=== PATIENT | male | born 1990 | race Caucasian/White ===

== ENCOUNTER 2024-05-06 13:01 | Emergency (ER) | payer OTHER, SELFPAY ==
[2024-05-06 13:35] VITALS: BP 148/75; PULSE 75; RESP 22; TEMP 37.1; O2SAT 99
--- NOTE | 2024-05-06 14:16 | ED.EAR ---
HPI - Ear Problem General Chief complaint: Ear Stated complaint: double ear infection Source: patient Mode of arrival: ambulatory Limitations: no limitations History of Present Illness HPI Narrative: 34-year-old male presented for complaint of bilateral ear pain for 3 days. Endorses associated tinnitus and tenderness to the outside of the ear. He states he wears ear plugs for work. He denies recent nasal congestion, cough, nausea vomiting, fevers or chills. Taking Tylenol occasionally. MD Complaint: ear pain Related Data Allergies Allergy/AdvReac Type Severity Reaction Status Date / Time No Known Allergies Allergy Unverified 05/06/24 14:03 Review of Systems Review of Systems: CONSTITUTIONAL: Denies malaise, chills, or fever. EYES: Denies visual changes, redness, or discharge. ENT: Denies rhinorrhea, congestion, sinus pain, and sore throat. Reports ear pain CARDIOVASCULAR: Denies chest pain, palpitations, or edema. RESPIRATORY: Denies cough or dyspnea. GASTROINTESTINAL: Denies abdominal pain, nausea, vomiting, diarrhea SKIN: Denies rash or itching. MUSCULOSKELETAL: Denies myalgia. NEUROLOGIC: Denies headache. All systems reviewed & are unremarkable except as noted in HPI and below PMFSH Comments At time of signature, agree with nursing past medical, surgical, social and family history. There is no relevant family history pertinent to the presenting complaint Exam Narrative: GENERAL: Well-appearing EYES: PERRLA, conjunctivae clear ENT: Nares clear. Mucous membranes moist. right TM erythematous, bulging and intact; canal also erythematous, tender, no drainage. left TM pearly choe with dull light reflex, canal also erythematous, tender, no drainage; no tragal tenderness. Oropharynx not erythematous without lesions. Tonsils not enlarged and without exudate, no drooling, no hoarseness, no trismus, uvula midline. NECK: Supple. No lymphadenopathy CHEST: Clear to auscultation, breath sounds equal. No wheezing, rhonchi, rales, or stridor. No respiratory distress, speaks in full sentences. HEART: Regular rate and rhythm. No murmur heard. SKIN: Warm, dry, no rash. NEURO: Alert and oriented x3. PSYCH: Normal mood and affect Course Course Emergency Course: Patient is aware of diagnosis, understands and agrees to treatment plan. Anticipatory guidance given. Patient agrees to follow-up as directed and is aware of reasons to seek care at the emergency department. Portions of this record may have been created with voice recognition software Level of Care: Express Care Visit Vital Signs Vital signs: Vital Signs Temperature 98.7 F 05/06/24 13:35 Pulse Rate 75 05/06/24 13:35 Respiratory Rate 22 H 05/06/24 13:35 Blood Pressure 148/75 H 05/06/24 13:35 Pulse Oximetry 99 05/06/24 13:35 Oxygen Delivery Room Air 05/06/24 13:35 Temperature 98.7 F 05/06/24 13:35 Pulse Rate 75 05/06/24 13:35 Respiratory Rate 22 H 05/06/24 13:35 Blood Pressure 148/75 H 05/06/24 13:35 Pulse Oximetry 99 05/06/24 13:35 Oxygen Delivery Room Air 05/06/24 13:40 Reviewed Medical Decision Making MDM Narrative Medical decision making narrative: Discussed physical exam findings consistent with bilateral otitis externa, will treat for otitis medias the right TM is erythematous.. Advised supportive measures and signs/symptoms to go to the ER. Patient is appropriate for outpatient treatment and follow-up. Differential Diagnosis Differential Diagnosis: Coronavirus, strep pharyngitis, allergic rhinitis, upper respiratory tract infection, sinusitis, rhinosinusitis, nasopharyngitis, viral pharyngitis, otitis media, otitis externa, eustachian tube dysfunction, foreign body, cerumen impaction. Vital Signs Vital Signs: Vital Signs Temperature 98.7 F 05/06/24 13:35 Pulse Rate 75 05/06/24 13:35 Respiratory Rate 22 H 05/06/24 13:35 Blood Pressure 148/75 H 05/06/24 13:35 Pulse Oximetry 99 05/06/24 13:35 Oxygen Delivery Room Air 05/06/24 13:35 Temperature 98.7 F 05/06/24 13:35 Pulse Rate 75 05/06/24 13:35 Respiratory Rate 22 H 05/06/24 13:35 Blood Pressure 148/75 H 05/06/24 13:35 Pulse Oximetry 99 05/06/24 13:35 Oxygen Delivery Room Air 05/06/24 13:40 Discharge Plan Discharge Clinical Impression: Otitis externa Qualifiers: Otitis externa type: unspecified type Chronicity: acute Laterality: bilateral Qualified Code(s): H60.503 - Unspecified acute noninfective otitis externa, bilateral Otitis media Qualifiers: Otitis media type: suppurative Chronicity: acute Laterality: right Recurrence: non-recurrent Spontaneous tympanic membrane rupture: without spontaneous rupture Qualified Code(s): H66.001 - Acute suppurative otitis media without spontaneous rupture of ear drum, right ear Patient Disposition: Home, Self-Care Condition: Stable Instructions: Antibiotic Form, Swimmer's Ear (ED) Additional Instructions: Swimmer's ear is an infection in the outer ear canal, which runs from your eardrum to the outside of your head. It's often caused by water that remains in your ear, creating a moist environment that encourages the growth of bacteria. Take antibiotic drops as directed. Tylenol and ibuprofen every 8 hours as needed to reduce fever, pain Avoid water or anything into the ear for one week Follow up with your personal physician If your symptoms persist, change or worsen significantly, go to the emergency department for further evaluation. Patient Language: Yoruba Prescriptions: New amoxicillin-pot clavulanate 875-125 mg tablet 1 tablet PO Q12H 7 Days Qty: 14 0RF ciprofloxacin-dexamethasone 0.3-0.1 % drops,suspension 4 drp EACH EAR Q12H 7 Days Qty: 7.5 0RF Follow-up/Referrals: PHYSICIAN,ACCOUNTING COORDINATOR [Primary Care Provider] - Stand Alone Forms: Work/School Release IP Time of Disposition: 14:22
== END 2024-05-06 14:24 | disposition home or self-care (01) ==
PROVIDERS: Emergency Provider Nurse Practitioner Family
DX: H60.503 Unspecified acute noninfective otitis externa, bilateral (principal); H66.001 Acute suppurative otitis media without spontaneous rupture of ear drum, right ear
CPT/HCPCS: 99203; G0463

== ENCOUNTER 2024-12-10 08:13 | Emergency (ER) | payer OTHER, SELFPAY ==
--- OUTSIDE RECORDS SUMMARY | 2015-09-01 04:15 | XMS_ITS | Continuity of Care Document ---
Author Organization Located within [facility] Address [address] [place] [address] [place] [address] Phone Care Team Providers Care Head Sawyer Automatic Name Role Phone Ok Finley MD Unavailable Unavailable Allergies, Adverse Reactions, Alerts Substance Reaction Status Criticality No Known Allergies Active No Inform ation Procedures Procedure Date No Charge Refraction Advance Directives Directive Yes / No Effective Date File Name No Information Encounters Encounter Description Practice Location Reason(s) For Visit Diagnoses Date Provider Providers Copied on Encounter [facility], [address] [place] [address] [address], [place], [place], [id number], tel:[phone] [address] [place] Professional routine exam (chief complaint) Routine eye exam [address] [place] [place] [id number]. tel:[phone] Referring Provider: Ok Youssef, [address] [facility], [place], [address] . tel:[phone] Family History Family Member Type Diagnosis Age At Onset No Information Payers Payer name Insurance type Covered alliance party ID Authoriza tion(s) No Information Social History Type Description Quantity Date Captured Comments Alcohol Use Details Caffeine Use Details Tobacco Use Status No Information Smoking Status Never smoker Non-Smoking Tobacco Use Details : No Details Available : No Details Available Sex Male Chief Complaint And Reason For Visit From encounter dated '09/01/2015 09:15'. routine exam (chief complaint). Description: The 25 year old male presents for a new patient exam ou. Patient c/o harder to see at night. Patient states his eyes water. Reason For Referral Reason For Referral No Information History Of Present Illness Encounter Date Complaint History Of Prese nt Illness routine exam The 25 year old male presents for a new patient exam ou. Patient c/o harder to see at night. Patient states his eyes water. Functional Status Date Functional Assessmen t No Information Instructions Date Instruction Additional Infor saleem Impression/Plan - Di scussed diagnosis in detail with patient. Slight refractive error. Rx for glasses given to patient. Recommend OTC allergy drops for allergies. Return to clinic in 2 years for complete exam or sooner with any problems. Routine eye exam - Educational m aterial given Related to Routine eye exam Follow up - Return i n 2 years with Ok Finley M.D. for Complete Exam. Assessments Type Assessment Date assessment Routine eye exam Patient Care Teams Name Effective Dates (start - stop) Status Members No Information
[2024-12-10 08:16] VITALS: BP 151/87; PULSE 67; RESP 16; TEMP 36.1; O2SAT 98
--- OUTSIDE RECORDS SUMMARY | 2024-12-10 08:16 | XMS_ITS | Clinical Summary ---
Author Organization [facility] Address [address] [place] [id number] Care Team Providers Care Veterans' Coordinator Name Role Phone Harshal Mcmillan MD Primary Care Provider [phone] Allergies No known active allergies Medications blood-glucose meter (Freestyle InsuLinx) misc Test daily before all meals/snacks and once before bedtime. 1 each 08/07/19 25 Active alcohol swabs pads, medicated TEST DAILY BEFORE ALL MEALS/SNACKS AND ONCE BEFORE BEDTIME DIRECTED 100 each 11 08/25/19 25 Active lancets 30 gauge misc Use to test blood sugar twice daily 200 each 3 09/08/19 25 Active blood glucose diagnostic (glucose blood) strip Check blood sugar two times a day 200 each 3 09/08/19 25 Active naproxen (NAPROSYN) 500 mg tablet Take 1 tablet (500 mg total) by mouth 2 (two) times a day with meals 30 tablet 09/17/19 25 Active Additional Information Patient not taking.Reported on 11/18/2024 methocarbamoL (ROBAXIN) 500 mg tablet Take 1 tablet (500 mg total) by mouth 2 (two) times a day 20 tablet 09/17/19 25 Active Additional Information Patient not taking.Reported on 11/18/2024 lidocaine (LIDODERM) 5 % Place 1 patch on the skin daily for 12 hours for 14 days Remove & discard patch within 12 hours or as directed by . 14 patch 09/17/[address] (CYMBALTA) 30 mg capsuleIndica tions:Moderat e major depression (HCC),General ized anxiety disorder Take 1 capsule (30 mg total) by mouth daily 30 capsule 2 11/16/19 25 Active tirzepatide (Mounjaro) 5 mg/0.5 mL pen injector injection Inject 0.5 mL (5 mg total) under the skin once a week 2 mL 6 11/19/[address] (CYMBALTA) 30 mg capsuleIndica tions:Moderat e major depression (HCC),General ized anxiety disorder Take 1 capsule (30 mg total) by mouth daily 30 capsule 2 08/13/19 25 025 Discontinued(R eorder) tirzepatide (Mounjaro) 2.5 mg/0.5 mL pen injector injection Inject 0.5 mL (2.5 mg total) under the skin once a week 2 mL 6 08/19/19 25 025 Discontinued FreeStyle Gianfranco 3 Plus Sensor device 1 Device continuously [id number] each 4 08/19/19 25 025 Active Problems Problem Noted Date Diagnosed Date Type 2 diabetes mellitus wit hout complication, without long-term current use of insulin 08/12/2024 Assessment & Plan (09/06/2024 4:34 PM CDT): Stable, improving control; patient is making dietary changes, focusing on low-carbohydrate diet; per patient home blood sugars are running under 200 generally with few episodes going over 200 Encouraged continued use of food generally to identify high carbohydrate foods Continue mounjaro 2.5, increase monthly as tolerated per Endocrinology Moderate major depression 08/12/2024 Assessment & Plan (09/06/2024 4:34 PM CDT): Stable, well controlled; patient reports good relief with medication No major depressive or anxious symptoms at this time Continue duloxetine 30 mg daily Generalized anxiety disorder 08/12/2024 Right ureteral calculus 08/05/2024 Class 3 severe obesity due t o excess calories with serious comorbidity and body mass index (BMI) of 45.0 to 49.9 in adult 03/13/2018 Assessment & Plan (09/06/2024 4:34 PM CDT): Stable, improving; patient is down about 30 lb since our no show started on weight loss Encouraged continued dietary changes, limiting high-calorie foods, limiting sugary foods Patient recently started Mounjaro; to increase dosage monthly as tolerated 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 11/02/2015 Overview (06/14/2016): Prolapsed thoracic intervertebral disc without myelopathy Chronic thoracic back pain 04/21/2015 Overview (06/14/2016): Chronic thoracic back pain Sciatica 02/17/2014 Overview (06/14/2016): Sciatica 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 12/14/2013 Overview (06/14/2016): Displacement of lumbar intervertebral disc without myelopathy Back pain 11/10/2013 Overview (06/14/2016): Back pain Numbness 11/10/2013 Overview (06/14/2016): Numbness Resolved Problems Problem Noted Date Diagnosed Date Resolved Date Type 2 diabetes mellitus wit h hyperglycemia ([facility]/HCC) 08/12/2024 08/12/2024 Postprocedural state 02/17/2014 0605/ 025 Overview (06/14/2016): Postprocedural state finding Encounters Date Type Department Care Team Description 11/18/2024 1:00 PM CDT Office Visit [facility] Diabetes [facility] at [address] [place] [phone] Christopher Vasquez, Type 2 diabetes mellitus without complication, without long-term current use of insulin (HCC) (Primary Dx) 09/16/2024 6:55 PM CDT - 09/16/2024 7:56 PM CDT Emergency [facility] Emergency Department [address] [place] [address] Midline low back pain without sciatica, unspecified chronicity (Primary Dx) Discharge Disposition: Discharge to home or self care from Last 3 Months Immunizations Immunization Administration Dates Next Due DTP 10/25/1992, 2,1990,06/09 HPV, Quadrivalent 10/12/2012 Hep A, Adult 10/12/2012 Hep A, Pediatric 09/05/2005 Hep B, Adolescent or Pediatric 08/09/2002,2002,07/29/2001 IPV 10/25/1992, 2,1990,06/09 Influenza, Quadrivalent, Spl it, Preservative Free, Intramuscular 01/18/2021 MMR 06/26/1993,11/18/1991 Tdap 09/05/2005 Surgical History Surgery Date Site/Laterality Comments BACK SURGERY 03/10/2015 - 03/09/2016 microdiskectomy lumbar spine SPINAL CORD STIMULATOR IMPLANT 03/10/2015 - 03/09/2016 pt states that it is and no longer works CYSTOSCOPY W/ URETEROSCOPY W/ LITHOTRIPSY 08/06/2024 laser, Dr. Guo Medical History Medical History Date Comments Pilonidal abscess Diabetes mellitus, type 2 Family History Medical History Relation Name Comments Gout Father Hypertension Father Hypertension; covid19 complications Father prediabetes Father Blindness Maternal Grandfather Diabetes type II Maternal Grandfather Diabetes type II Mother Diabetes me llitus type 2; Nephrolithiasis Mother Aneurysm Other Gilberto Diabetes type II Other Gilberto Coronary artery disease Paternal Grandfather covid 19 Paternal Grandfather Kidney disease Paternal Grandmother covid 19 Paternal Grandmother Relation Name Status Comments Father Alive Maternal Grandfather Maternal Grandmother Mother Alive Other Gilberto Paternal Grandfather Paternal Grandmother Social History Tobacco Use Types Packs/Day Years Used Date Smoking Tobacco: Never Smokeless Tobacco: Never Tobacco Cessation:Counseling Given: Not Answered Alcohol Use Standard Drinks/Week Comments Yes 0 (1 standard drink = 0.6 oz pur e alcohol) socially AUDIT-C Answer Date Recorded Q1: How often do you have a drink containing alc ohol? Monthly or less 09/06/2024 Q2: How many drinks containi ng alcohol do you have on a typical day when you are drinking? 1 or 2 09/06/2024 Q3: How often do you have si x or more drinks on one occasion? Never 09/06/2024 PHQ-2 Answer Date Recorded PHQ-2 Total Score (If total score is 3 or more points, staff should administer the PHQ-9) 0 09/06/2024 PHQ-9 Answer Date Recorded PHQ-9 Total Score 11 08/12/2024 Personal Safety Answer Date Recorded Have you ever been in or are you currently in a harmful physical or emotional relationship or is someone making you feel afraid or unsafe? Denies 09/16/2024 Sex and Gender Information Value Date Recorded Sex Assigned at Not on file Legal Sex Male 3:23 AM [employer] Gender Identity Male 08/11/2024 8:44 AM CDT Sexual Orientation Straight 08/11/2024 8: 44 AM CDT Obstetrics History Last Filed Vital Signs Vital Sign Reading Time Taken Comments Blood Pressure 126/82 11/18/2024 12:50 PM CDT Pulse 78 11/18/2024 12:50 PM CDT Temperature 37.2 C (98.9 F) 09/16/2024 6:53 PM CDT Respiratory Rate 18 09/16/2024 6:53 PM CDT Oxygen Saturation 100% 09/16/2024 6:53 PM CDT Inhaled Oxygen Concentration - - Weight 146.9 kg (323 lb 12.8 oz) 2024 12:50 PM CDT Height 180.3 cm (5' 11) 11/18/2024 12: 50 PM CDT Body Mass Index 45.16 11/18/2024 12:50 PM CDT Plan of Treatment Health Maintenance Due Date Last Done Comments Regular Well Visit/Exam 18-64 2008 Pneumococcal vaccine <65 (1 of 2 - PCV) 2009 HPV Vaccines (2 - Male 3-dos e series) 11/09/2012 10/12/2012 DTaP/Tdap/Td Vaccine (6 - Td or Tdap) 09/06/2015 09/05/2005, 10/25/1992, 06/28/1991, Additional history exists Covid-19 Vaccine ( - 2024-2 6 season) 2024 01/24/2021, 06/15/2020 Influenza Vaccine (#1) 2024 01/18/2021 Hemoglobin A1C 05/18/2025 11/18/2024, 08/05/2024 Dilated Eye Exam 08/12/2025 08/12/2024 Foot Exam 08/12/2025 08/12/2024 eGFR 08/13/2025 08/13/2024, 08/05/2024 Albumin Creatinine Ratio, Urine 09/06/2025 Depression Screening 09/06/2025 09/06/2024, 08/12/2024, 08/12/2024 Lipid Panel 09/06/2025 09/06/2024 Hepatitis B Screening Completed 08/09/2002 , 04/21/2002, 07/29/2001 Hepatitis C Screening Completed 09/06/2024 Varicella Vaccines Discontinued Medical Devices Implanted Type Area Compounding And Finishing Supervisor Device Identifier Shelf Expiration Date Model / Serial / Lot Spinal Cord Stimulator-3/04/2014 Implanted:Qty: 1 on 05/19/2014 by Pascual Alvarado MD Spinal Cord Stimulator Left: Back [id number] / [id number] / [employer] Stent Ureteral Set Double Pigtail Tapered Tip Contour [id number] Hydroplus Coated [id number] - [id number] Implanted:Qty: 1 on 08/06/2024 by Ezio Douglas MD at [facility] Right: Ureter [employer] 01/20/2027 [id number] / / [id number] Procedures Procedure Name Priority Date/Time Associated Diagnosis Comments POCT HEMOGLOBIN A1C Routine 11/18/2024 1 2:58 PM CDT Type 2 diabetes mellitus without complication, without long-term current use of insulin (HCC) XR SPINE LUMBAR 2 OR 3 VIEWS ED 09/16/2024 7:29 PM CDT HEPATITIS C ANTIBODY Routine 09/06/2024 12:13 PM CDT Encounter for hepatitis C screening test for low risk patient LIPID PANEL Routine 09/06/2024 12:13 PM CDT Type 2 diabetes mellitus without complication, without long-term current use of insulin (HCC) Class 3 severe obesity due to excess calories with serious comorbidity and body mass index (BMI) of 45.0 to 49.9 in adult ALBUMIN CREATININE RATIO, URINE Routine 09/06/2024 12:13 PM CDT Type 2 diabetes mellitus without complication, without long-term current use of insulin (HCC) EGFR STAT 08/13/2024 2:02 PM CDT RETINAVUE SCANNER - OU - BOTH EYES Routine 08/12/2024 Type 2 diabetes mellitus without complication, without long-term current use of insulin (HCC) from Last 3 Months or Most Recently Relevant to Health Maintenance Results * (ABNORMAL) POCT hemoglobin A1c (11/18/2024 12:58 PM CDT) Hemoglobin A1C, POC 5.8(A) 4.0 - 5.6 % Blood 11/18/2024 12:5 8 PM CDT Christopher Vasquez DO POINT OF CARE TEST ORDERABL ES Final Result * XR Spine Lumbar 2 or 3 Views (09/16/2024 7:29 PM CDT) Anatomical Region Laterality Modality Spine N/A Computed Radiogr aphy 09/16/2024 7:35 PM CDT Narrative 09/16/2024 7:45 PM CDT EXAM DESCRIPTION: XR SPINE LUMBAR 2 OR 3 VIEWS REASON FOR STUDY: Back pain after lifting, previous spinal surgery to L4-L5 Pain in lower back for 4 days. No known injury Pain radiates to both hips Hx of spinal stimulator and discetomy TECHNIQUE: 4 radiographic view(s) of the lumbar spine. COMPARISON: CT abdomen pelvis 08/05/2024 FINDINGS: ALIGNMENT: There is straightening of the lumbar lordosis. VERTEBRAE: Vertebral bodies of normal height. No fractures appreciated. Small endplate osteophytes are present. There are mild facet degenerative changes at L4-5 and L5-S1. DISCS: Mild disc space narrowing at L5-S1 and T12-L1. SOFT TISSUES: Dual lead dorsal column stimulator is present. IMPRESSION: No acute osseous abnormality of the lumbar spine. Mild degenerative changes of the lumbar spine. Dual lead dorsal column stimulator. THIS IS AN ELECTRONICALLY VERIFIED FINAL REPORT 09/16/2024 7:45 PM - Electronically signed by Yemi Kelly M.D. AM: AM Report ID: [id number] Reading Location: [id number] Procedure Note Yemi Kelly MD - 09/16/2024 EXAM DESCRIPTION: XR SPINE LUMBAR 2 OR 3 VIEWS REASON FOR STUDY: Back pain after lifting, previous spinal surgery toL4-L5 Pain in lower back for 4 days. No known injury Pain radiates to both hipsHx of spinal stimulator and discetomy TECHNIQUE: 4 radiographic view(s) of the lumbar spine. COMPARISON: CT abdomen pelvis 08/05/2024 FINDINGS: ALIGNMENT: There is straightening of the lumbar lordosis. VERTEBRAE: Vertebral bodies of normal height. No fractures appreciated.Small endplate osteophytes are present. There are mild facet degenerativechanges at L4-5 and L5-S1. DISCS: Mild disc space narrowing at L5-S1 and T12-L1. SOFT TISSUES: Dual lead dorsal column stimulator is present. IMPRESSION: No acute osseous abnormality of the lumbar spine. Mild degenerative changes of the lumbar spine. Dual lead dorsal column stimulator. THIS IS AN ELECTRONICALLY VERIFIED FINAL REPORT 09/16/2024 7:45 PM - Electronically signed by Yemi Kelly M.D. AM: AM Report ID: [id number] Reading Location: [id number] Katie [facility] XR PROCEDURES Final Result * Hepatitis C antibody Blood (09/06/2024 12:13 PM CDT) Hep C Ab Nonreactive Nonreactive Comment: Interpretive Data Nonreactive: Antibodies to HCV not detected. Does NOT exclude the possibility of recent exposure to HCV. Equivocal: Equivocal for HCV antibodies. Supplemental molecular testing will be automatically performed to determine infection status in accordance with current CDC screening recommendations. Reactive: Positive for HCV antibodies. This may represent current or past HCV infection. Supplemental molecular testing will be automatically performed to determine current infection status in accordance with current CDC screening recommendations. Interpretive data was last revised on 2019. Testing performed by: [facility], [address] [place] [address]., [id number] Blood 09/06/2024 12:1 3 PM CDT 09/06/2024 5:13 PM CDT Viky Brown DIAMOND FINISHING SUPERVISOR LAB MICROBIOLOGY - GENE RAL ORDERABLES Final Result Performing Organization Address City/[facility]/ZIP Co de Phone Number NAYELY SG ([place]) [address] [facility] [place] [address] * Albumin Creatinine Ratio, Urine (09/06/2024 12:13 PM CDT) Albumin Ur 22.2 mg/L Comment: Interpretive Data No reference range established. Current interpretive data was last revised 2018. Testing performed by: [facility], [address] [place] [address]., [id number] Creatinine Ur 431.0 mg/dL NAYELY BETTENCOURT ([place]) Comment: Interpretive Data No reference range established. Current interpretive data was last revised 2018. Testing performed by: [facility], [address] [place] [address]., [id number] Albumin Creatinine Ratio, Ur 5 1 - 29 mg/g NAYELY BETTENCOURT ([place]) Comment:Testing performed by : [facility], [address] [place] [address]., [id number] Urine 09/06/2024 12:1 3 PM CDT 09/07/2024 5:34 AM CDT Viky Brown DIAMOND FINISHING SUPERVISOR LAB URINE ORDERABLES Fi nal Result Performing Organization Address City/[facility]/ZIP Co de Phone Number NAYELY BETTENCOURT ([place]) 1 [facility] Department [employer] [place] [address] * (ABNORMAL) Lipid panel (09/06/2024 12:13 PM CDT) Cholesterol 137 30 - 199 mg/dL Comment: Interpretive Data Ages < or = 19 years Acceptable: <170 mg/dL Borderline high: 170-199 mg/dL High: >or= 200 mg/dL Ages > or = 20 years Desirable: <200 mg/dL Borderline high: 200-239 mg/dL High: >or= 240 mg/dL Literature References: 1. Expert Panel on Integrated Guidelines for Cardiovascular Health and Risk Reduction in Children and Adolescents. Pediatrics 2011;128:S213 2. NCEP Expert Panel. Circulation 2004;110:227 Current Interpretive Data was last revised on 2017. Triglycerides 66 <=149 mg/dL NAYELY BETTENCOURT ([place]) Comment: Interpretive Data Ages < or = 9 years Acceptable: <75 mg/dL Borderline high: 75-99 mg/dL High: >or= 100 mg/dL Ages 10 to 20 years Acceptable: <90 mg/dL Borderline high: 90-129 mg/dL High: >or= 130 mg/dL Ages > or = 20 years Desirable: <150 mg/dL Borderline high: 150-199 mg/dL High: 200-499 mg/dL Very high: >or= 499 mg/dL Literature References: 1. Expert Panel on Integrated Guidelines for Cardiovascular Health and Risk Reduction in Children and Adolescents. Pediatrics 2011;128:S213 2. NCEP Expert Panel. Circulation 2004;110:227 Current Interpretive Data was last revised on 2017. HDL 37(L) >=40 mg/dL NAYELY NOLASCO) Comment: Interpretive Data Ages < or = 19 years Acceptable: >45 mg/dL Borderline low: 40-45 mg/dL Low: <40 mg/dL Ages > or = 20 years Desirable: >or= 60 mg/dL Low: <40 mg/dL Literature References: 1. Expert Panel on Integrated Guidelines for Cardiovascular Health and Risk Reduction in Children and Adolescents. Pediatrics 2011;128:S213 2. NCEP Expert Panel. Circulation 2004;110:227 Current Interpretive Data was last revised on 2017. LDL, calculated 86 <=129 mg/dL NAYELY BETTENCOURT ([place]) Comment: Interpretive Data Ages < or = 19 years Acceptable: <110 mg/dL Borderline high: 110-129 mg/dL High: >or= 130 mg/dL Ages > or = 20 years Optimal: <100 mg/dL Near optimal: 100-129 mg/dL Borderline high: 130-159 mg/dL High: >160 mg/dL Calculated using the Dejesus LDL-C estimating equation. This equation was implemented on 2023. Prior to this date LDL-C was estimated using the Friedewald equation. Literature References: 1. Expert Panel on Integrated Guidelines for Cardiovascular Health and Risk Reduction in Children and Adolescents. Pediatrics 2011;128:S213 2. NCEP Expert Panel. Circulation 2004;110:227 3. Oleg Thomas et al. HANS Cardiol. 2020 July 08;5(5):540-548. doi: 10.1001/jamacardio.2020.0013 Current Interpretive Data was last revised on 2023. Non-HDL Cholesterol 100 mg/dL NAYELY BETTENCOURT ([place]) Comment: Interpretive Data Ages < or = 19 years Acceptable: <120 mg/dL Borderline high: 120-144 mg/dL High: >145 mg/dL Ages > or = 20 years When triglycerides are >200 mg/dL, Non-HDL cholesterol is a secondary target of therapy with treatment goals that are 30 mg/dL greater than the LDL cholesterol target. Literature References: 1. Expert Panel on Integrated Guidelines for Cardiovascular Health and Risk Reduction in Children and Adolescents. Pediatrics 2011;128:S213 2. NCEP Expert Panel. Circulation 2004;110:227 Current Interpretive Data was last revised on 2017. Chol/HDL ratio 4 PATSY BETTENCOURT ([place]) Blood 09/06/2024 12:1 3 PM CDT 09/06/2024 12:26 PM CDT Viky Brown DIAMOND FINISHING SUPERVISOR LAB BLOOD ORDERABLES nal Result NAYELY BETTENCOURT ([place]) 1 [facility] [place] [address] * eGFR (08/13/2024 2:02 PM CDT) eGFR 87 >=60 mL/min/1. 73 m2 Comment: Interpretive Data Reference Interval Normal >/= 90 mL/min/1.73m2 Mildly decreased* 60 - 89 mL/min/1.73m2 Mildly to moderately decreased 45 - 59 mL/min/1.73m2 Moderately to severely decreased 30 - 44 mL/min/1.73m2 Severely decreased 15 - 29 mL/min/1.73m2 Kidney Failure < 15 mL/min/1.73m2 *Relative to young adult level Estimated glomerular filtration rate is determined by the 2020 CKD-EPI equation recommended by the National Kidney Foundation (A Unifying Approach to GFR Estimation: Recommendations of the NKF-ASK Task Force on Reassessing the Inclusion of Race in Diagnosing Kidney Disease, JASN 2020). The CKD-EPI equation should not be used for patients with unstable renal function and has not been validated in children and those over 70. Current interpretive data was last reviewed 2021. Blood 08/13/2024 2:02 PM CDT 08/13/2024 2:12 PM CDT Rodri Hassan MD LAB BLOOD ORDERABLES Final R esult [facility] ([place]) 1 [facility] [place] [address] * RetinaVue Scanner - OU - Both Eyes (08/12/2024) Anatomical Region Laterality Modality Head Fundus Photograp hy 08/12/2024 Viky Brown NP OPHTH PHOTOGRAPHY Final Result from Last 3 Months or Most Recently Relevant to Health Maintenance Insurance [facility] [place] [id number] Advance Directives For more information, please contact: [phone] * Full Code (Latest Code Status on File) Date Activated Date Inactivated Comments 08/05/2024 8:23 PM 08/07/2024 5:31 PM Care Teams Veterans' Coordinator Relationship Specialty Start Date End Date Harshal Mcmillan MD [address] [place] [address] PCP - General Family Medicine 08/12/24
--- NOTE | 2024-12-10 08:18 | ED_ITS ---
HPI - Ear Problem General Chief complaint: Ear Stated complaint: Right Ear Pain Source: patient Mode of arrival: ambulatory Limitations: no limitations History of Present Illness HPI Narrative: Torrey is a 34 year old male patient presenting to the clinic today with c/o right ear pain x1 day. He reports he is having pain in his ear that is radiating into his jaw. Rates his pain 6/10 currently. He has not take any medicines for his pain. No ear drainage. No recent swimming. Denies any dental pain. Denies fevers, chills, body aches. Related Data Home Medications ?Medication ?Instructions ?Recorded ?Confirmed ?Last Taken ?Type duloxetine 30 mg capsule,delayed mg PO 12/10/24 Unkno wn History release tirzepatide 5 mg/0.5 mL mg subcut 12/10/24 Unknown History subcutaneous pen injector (Victor Manuelunyovana) Allergies Allergy/AdvReac Type Severity Reaction Status Date / Time No Known Allergies Allergy Verified 12/10/24 08:16 Review of Systems Review of Systems: Pertinent positives per HPI. Patient denies any fever, chills, rash, headache, visual changes, dizziness, cough, runny nose, sore throat, shortness of breath, chest pain, palpitations, nausea, vomiting, diarrhea, constipation, abdominal pain, or any urinary issues. PMFSH Comments At the time of my signature, I reviewed and agree with the nursing past medical, surgical, social, and family history. There is no relevant family history pertinent to the patient complaint. Exam Narrative: General: Well-developed, morbidly obese, in no apparent distress Head: Normocephalic, atraumatic Eyes: Pupils equally round and reactive to light bilaterally, EOM intact, sclera and conjunctive clear, no discharge, lids normal Ears: Left TMs intact and clear, right TM, intact, bulging, mild redness, no tenderness to palpation over the tragus or pulling of the pinna, ear canals clear, no drainage, grossly hearing normal. Nose: Nares patent, no discharge, no inflammation, no sinus tenderness. Mouth: Oropharynx without lesions or masses, good dentition, MMM. Neck: Supple, trachea midline, no enlargement of anterior or posterior cervical nodes, no thyroid masses or goiter palpable. Cardio: Regular rate and rhythm, s1 and s2 normal, no murmur appreciated. Resp: Clear to auscultation bilaterally anteriorly and posteriorly, no rhonchi, rales, wheezing or rubs Course Course Emergency Course: Portions of this record may have been created with voice recognition software. Level of Care: Express Care Visit Vital Signs Vital signs: Vital Signs Temperature 36.1 C L 12/10/24 08:16 Pulse Rate 67 12/10/24 08:16 Respiratory Rate 16 12/10/24 08:16 Blood Pressure 151/87 H 12/10/24 08:16 Pulse Oximetry 98 12/10/24 08:16 Oxygen Delivery Room Air 12/10/24 08:16 Temperature 36.1 C L 12/10/24 08:16 Pulse Rate 67 12/10/24 08:16 Respiratory Rate 16 12/10/24 08:16 Blood Pressure 151/87 H 12/10/24 08:16 Pulse Oximetry 98 12/10/24 08:16 Oxygen Delivery Room Air 12/10/24 08:16 Vital signs reviewed Medical Decision Making MDM Narrative Medical decision making narrative: At the time of visit patient is resting comfortably on the exam table. Patient appears to be nontoxic. C/o right ear pain x1 day. He reports he is having pain in his ear that is radiating into his jaw. Rates his pain 6/10 currently. He has not take any medicines for his pain. No ear drainage. No recent swimming. Denies any dental pain. Denies fevers, chills, body aches. On exam patient has right TM intact, bulging, with mild redness. No tenderness to palpation over the tragus or pulling of the pinna. Ear canal was clear. Plan: I suspect patient has early right otitis media. Work note was given. Prescription for Augmentin was sent to the pharmacy. Supportive measures were discussed with the patient and they voiced understanding discharge instructions and agrees to treatment plan. Return precautions reviewed Differential Diagnosis Differential Diagnosis: Otitis media, otitis externa, eustachian tube dysfunction, cerumen impaction, upper respiratory infection, serous otitis Vital Signs Vital Signs: Vital Signs Temperature 36.1 C L 12/10/24 08:16 Pulse Rate 67 12/10/24 08:16 Respiratory Rate 16 12/10/24 08:16 Blood Pressure 151/87 H 12/10/24 08:16 Pulse Oximetry 98 12/10/24 08:16 Oxygen Delivery Room Air 12/10/24 08:16 Temperature 36.1 C L 12/10/24 08:16 Pulse Rate 67 12/10/24 08:16 Respiratory Rate 16 12/10/24 08:16 Blood Pressure 151/87 H 12/10/24 08:16 Pulse Oximetry 98 12/10/24 08:16 Oxygen Delivery Room Air 12/10/24 08:16 Discharge Plan Discharge Clinical Impression: Otitis media Qualifiers: Otitis media type: suppurative Chronicity: acute Laterality: right Recurrence: non-recurrent Spontaneous tympanic membrane rupture: without spontaneous rupture Qualified Code(s): H66.001 - Acute suppurative otitis media without spontaneous rupture of ear drum, right ear Patient Disposition: Home Condition: Stable Instructions: Antibiotic Form, Ear Infection (ED) Additional Instructions: Take any prescribed medications only as directed-Augmentin Tylenol/motrin as needed for pain May use heating pad to alleviate pain If you get recurrent ear infections it may be warranted to follow up with ENT. Follow up with your PCP in 3-5 days if symptoms persist. Patient Language: Georgian Prescriptions: New amoxicillin-pot clavulanate 875-125 mg tablet 1 tablet PO Q12H 7 Days Qty: 14 0RF No Action duloxetine 30 mg capsule,delayed release(DR/EC) PO Mounjaro 5 mg/0.5 mL pen injector SUBCUT Follow-up/Referrals: Hipolito,MD Harshal [Primary Care Provider, Unknown] Stand Alone Forms: Work/School Release IP Time of Disposition: 08:25 Quality NIHSS Nursing Documentation ED NIHSS nursing documentation: reviewed/agree
== END 2024-12-10 08:33 | disposition home or self-care (01) ==
PROVIDERS: Emergency Provider Nurse Practitioner Family; PCP Hospitalist
DX: H66.001 Acute suppurative otitis media without spontaneous rupture of ear drum, right ear (principal); E11.9 Type 2 diabetes mellitus without complications; Z79.85 Long-term (current) use of injectable non-insulin antidiabetic drugs
CPT/HCPCS: 99213; G0463